=== PATIENT | female | born 1955 | race Caucasian/White ===

== ENCOUNTER → 2016-10-26 | Outpatient (CLI) | payer OTHER ==
[~2016-10-26] MED LIST: CIPR-255 PO; OPTIRAY 300 IV PRN
--- NOTE | 2016-10-26 15:40 | DIAGNOSTIC IMAGING REPORT ---
IVP W/OR W/O TOMOGRAMS CLINICAL HISTORY: N20.0 [id number] Pelvic prolapse PRECERT REQUIRED PE COMPARISON STUDY: Outside hospital abdomen and pelvis CT 05/20/2015. FINDINGS: Pony [employer] Attendant image shows no renal, ureteral, or bladder calculi. Punctate calcifications in the left deep pelvis consistent with phleboliths. Cholecystectomy. Following the intravenous administration of contrast there is prompt and symmetric perfusion of the kidneys. The kidneys are normal in size and shape. Mild fullness within the right renal collecting system without yvonne hydronephrosis. Focal stricturing at the ureteropelvic junction. The remaining right ureter is normal in course and caliber. No left-sided hydronephrosis. The left ureter is normal in course and caliber. Mild narrowing at the left ureteropelvic junction. However, no left renal collecting system fullness. The bladder is normal in size and shape. Small post residual. IMPRESSION: 1. Focal narrowing at the right ureteropelvic junction resulting in mild fullness within the right renal collecting system without yvonne hydronephrosis. This could be due to a focal stricture. Consider dedicated CT urogram for further evaluation. 2. There is also mild focal narrowing at the left ureteropelvic junction. However, no significant dilatation of the left renal collecting system. 3. Small postvoid residual. Electronically signed by: Moe Quevedo M.D. 10/26/2016 3:39 PM Dictated Date/Time: 10/26/2016 3:21 PM
== END | disposition home or self-care (01) ==
LOC: C.RAD 14:02
PROVIDERS: ATTEND Urology
DX: N20.0 Calculus of kidney (principal); N81.9 Female genital prolapse, unspecified